=== PATIENT | male | born 1955 | race Caucasian/White ===

== ENCOUNTER → 2020-07-04 | Day surgery (SDC) | payer OTHER, MEDICARE ==
[~2020-07-04] MED LIST: ALLOPURINOL 30300 MG PO; ASPIRIN CHEWABL81 MG PO; ATORVASTATIN CA20 MG PO; B COMPLEX WITH1 EACH PO; CARDURA1 MG PO; IMODIUM2 MG PO; METFORMIN HCL1000 MG PO; METOPROLOL SUCC50 MG PO; NORCO 5-325 TA1 EACH PO; ONDANSETRON ODT8 MG PO; ZOFRAN8 MG PO
== END | disposition home or self-care (01) ==
LOC: FAS 08:38
DX: I87.2 Venous insufficiency (chronic) (peripheral) (principal); I12.9 Hypertensive chronic kidney disease with stage 1 through stage 4 chronic kidney disease, or unspecified chronic kidney disease; I25.10 Atherosclerotic heart disease of native coronary artery without angina pectoris; I25.2 Old myocardial infarction; E11.22 Type 2 diabetes mellitus with diabetic chronic kidney disease; E78.00 Pure hypercholesterolemia, unspecified; E78.5 Hyperlipidemia, unspecified; N18.9 Chronic kidney disease, unspecified; Z98.61 Coronary angioplasty status; Z86.74 Personal history of sudden cardiac arrest; Z20.822 Contact with and (suspected) exposure to COVID-19; Z85.048 Personal history of other malignant neoplasm of rectum, rectosigmoid junction, and anus; Z88.8 Allergy status to other drugs, medicaments and biological substances; Z79.899 Other long term (current) drug therapy; Z87.891 Personal history of nicotine dependence; Z98.890 Other specified postprocedural states
CPT/HCPCS: 93005; J2250; J2704; J3010; J7120

== ENCOUNTER 2020-10-02 15:29 | Day surgery (SDCO) | payer MEDICARE, OTHER ==
[~2020-10-02] VITALS: Ht 182.9 cm; Wt 70.8 kg
[~2020-10-02 15:29] MED LIST changes: -CARDURA1 MG PO; -IMODIUM2 MG PO
[2020-10-02 16:08] LABS: BASOPHIL 0 % (0-2); EOSINOPHIL 0 % (0-7); HCT 42.1 % (42.0-52.0); HGB 13.9 g/dl (13.2-18.0); LYMPHOCYTE 8.6 % (15-48); MCH 30.5 pg (25.0-31.0); MCV 92.3 fL (78.0-100.0); MONOCYTE 7.4 % (0-12); MPV 11.7 fL (6.0-9.5); NEUTROPHIL 83.6 % (41-80); NRBC 0; RBC 4.56 M/uL (4.70-6.00); RDW 13.1 % (11.5-14.0); WBC 2.4 K/uL (4.0-10.5)
[2020-10-02 16:24] LABS: INR 1.18 (0.9-1.2); PROTHROMBIN TIME 14.4 SECONDS (11.8-13.4)
[2020-10-02 16:25] LABS: PTT 60.4 SECONDS (24.4-34.7)
[2020-10-02 16:34] LABS: LACTIC ACID 1.7 mmol/L (0.4-1.9)
[2020-10-02 16:39] LABS: ALBUMIN 3.4 g/dL (3.4-5.0); BILIRUBIN - TOTAL 0.4 mg/dL (0.2-1.0); BUN/CREAT RATIO (CALC) 14.7 RATIO; C-REACTIVE PROTEIN 4.1 mg/dL (<=0.90); CREATININE 2.31 mg/dL (0.67-1.17); MAGNESIUM 1.8 mg/dL (1.8-2.4); POTASSIUM 4.5 mmol/L (3.5-5.1); TOTAL PROTEIN 7.4 g/dL (6.4-8.2)
[2020-10-02 16:52] LABS: PLT 55 K/uL (150-400)
[2020-10-02] MEDS ORDERED: CARDURA1 MG PO (18:51)
[2020-10-02 23:02] LABS: BILIRUBIN NEGATIVE (NEGATIVE); BLOOD 1+ Ery/uL (NEGATIVE); COLOR YELLOW (YELLOW); GLUCOSE (U) NORMAL (NORMAL); LEUKOCYTES NEGATIVE Leu/uL (NEGATIVE); NITRITE NEGATIVE (NEGATIVE); PROTEIN 2+ mg/dL (NEGATIVE); SPECIFIC GRAVITY >=1.030 (1.001-1.030); UROBILINOGEN 0.2 mg/dL (0.2-1.0); pH 5.5 (5.0-9.0)
[2020-10-02 23:07] LABS: CLARITY SLIGHTLY HAZY (CLEAR)
[2020-10-02 23:08] LABS: BACTERIA TRACE
[2020-10-02 23:09] LABS: GRANULAR CASTS TRACE
[2020-10-03 06:24] LABS: BASOPHIL 0 % (0-2); EOSINOPHIL 0.8 % (0-7); LYMPHOCYTE 24.4 % (15-48); MCH 30.8 pg (25.0-31.0); MCHC 33.3 g/dL (32.0-36.0); MCV 92.5 fL (78.0-100.0); MPV 11.8 fL (6.0-9.5); NEUTROPHIL 63.8 % (41-80); NRBC 0; RBC 3.89 M/uL (4.70-6.00); RDW 13.1 % (11.5-14.0)
[2020-10-03 07:27] LABS: WBC 1.3 K/uL (4.0-10.5)
[2020-10-03 07:29] LABS: PLT 41 K/uL (150-400)
[2020-10-03 07:37] LABS: ALBUMIN 2.8 g/dL (3.4-5.0); BILIRUBIN - TOTAL 0.4 mg/dL (0.2-1.0); BUN/CREAT RATIO (CALC) 19.3 RATIO; CREATININE 1.61 mg/dL (0.67-1.17); GLOBULIN (CALCULATION) 3.4 g/dL; POTASSIUM 4.3 mmol/L (3.5-5.1); TOTAL PROTEIN 6.2 g/dL (6.4-8.2)
[2020-10-03] MEDS ORDERED: IMODIUM2 MG PO (14:57)
== END 2020-10-03 15:40 | disposition home or self-care (01) ==
LOC: FER 15:29 → FMS 17:36
PROVIDERS: Emergency Medicine; Nurse Practitioner; ADMIT Internal Medicine
DX: U07.1 COVID-19 (principal); I95.1 Orthostatic hypotension; E86.0 Dehydration; N17.9 Acute kidney failure, unspecified; I10 Essential (primary) hypertension; Z79.899 Other long term (current) drug therapy; Z88.8 Allergy status to other drugs, medicaments and biological substances; Z95.820 Peripheral vascular angioplasty status with implants and grafts
CPT/HCPCS: 36415; 36600; 80053; 81001; 82728; 82803; 83605; 83615; 83690; 83735; 83880; 84145; 84443; 85025; 85610; 85730; 86140; 87040; 93005; 94010; 94760; G0378; J1650; J7030; U0002